=== PATIENT | male | born 1980 | race Caucasian/White ===

== ENCOUNTER 2020-02-27 11:42 | Inpatient (IN) | payer OTHER ==
[~2020-02-27] VITALS: Ht 182.9 cm; Wt 113.9 kg
[2020-02-27 11:48] VITALS: BP 131/86
[2020-02-27 12:47] LABS: HEMATOCRIT 25.6 % (42.0-52.0); HEMOGLOBIN 8.5 gm/dL (14.0-18.0); MCH 29.4 pg (26.0-34.0); MCHC 33.3 g/dL (28.0-37.0); MCV 88.3 fL (80.0-100.0); PLATELET COUNT 118 thou/uL (150-400); RDW 16.4 % (10.5-14.5); WBC 2.3 thou/uL (4.0-11.0)
[2020-02-27 12:55] LABS: ANION GAP 7 mmol/L (7-16); BUN 11 mg/dL (7-18); CALCIUM 8.2 mg/dL (8.5-10.1); CHLORIDE 101 mmol/L (98-107); CO2 26 mmol/L (21-32); CREATININE 0.7 mg/dL (0.7-1.3); GLUCOSE 97 mg/dL (74-106); POTASSIUM 4.1 mmol/L (3.5-5.1); SODIUM 134 mmol/L (136-145)
[2020-02-27 13:02] LABS: APTT 29.6 Seconds (24.5-32.8); INR 1.1; PROTIME 10.7 Seconds (9.3-11.4)
[2020-02-27 13:06] LABS: ALBUMIN 2.3 g/dL (3.4-5.0); MAGNESIUM 2.1 mg/dL (1.8-2.4); SGOT 51 U/L (15-37); SGPT 50 U/L (30-65); TOTAL BILIRUBIN 0.4 mg/dL (0.2-1.0); TOTAL PROTEIN 5.2 g/dL (6.4-8.2); TROPONIN-I <0.06 ng/mL (<0.06)
[2020-02-27 13:57] LABS: ABSOLUTE NEUTROPHILS 1.9 thou/uL (1.4-8.2); PLATELET ESTIMATE NORMAL
[2020-02-27 14:21] LABS: AMP/METHAMP Negative (Negative); BARBITURATES Negative (Negative); BENZODIAZEPINES Negative (Negative); COCAINE Negative (Negative); METHADONE Negative (Negative); OPIATES POSITIVE (Negative); PCP Negative (Negative)
--- NOTE | 2020-02-27 14:25 | EKG ---
[facility] [place] [address] ELECTROCARDIOGRAM REPORT Name: SILVANO WOOD Room #: PRE M.R.#: [id number] Admission: Attend Phys: Discharge: Date of : 76 Report #: [id number] THIS REPORT FOR: cc: Harry Rivera MD [facility] ~ THIS REPORT FOR: //name// [facility] ED Test Date: 2020-02-27 Test Time: 11:51:11 Pat Name: SILVANO WOOD Department: Room: Gender: M Trackwalker: kkrammirlande : 1980 Requested By: Zacarias Forrest Order Number: [id number] : Harry Rivera Measurements Intervals [place] Rate: 88 P: 20 TX: 165 QRS: 27 QRSD: 99 T: 26 QT: 362 QTc: 438 Interpretive Statements Sinus rhythm Baseline wander in lead(s) V3 No previous ECG available for comparison Electronically Signed On 02-27-2020 14:24:52 CAREER GUIDANCE TECHNICIAN by Harry Rivera [email or web address] <ELECTRONICALLY SIGNED> By: Harry Rivera MD, FACC 02/27/20 1424 1151 1151 Harry Rivera MD, FACC /EPI
[2020-02-27] MEDS ORDERED: LIPITOR40 MG PO (15:08)
[2020-02-27] MEDS ORDERED: ELIQUIS5 MG PO (15:08)
[2020-02-27] MEDS ORDERED: LISINOPRIL20 MG PO (15:08)
[2020-02-27] MEDS ORDERED: PLAVIX 75 MG TA75 MG PO (15:08)
[2020-02-27] MEDS ORDERED: LASIX 40 MG TAB40 M2 PO (15:08)
[2020-02-27] MEDS ORDERED: TOPROL XL50 MG PO (15:08)
[2020-02-27] MEDS ORDERED: ROXICODONE30 M1 PO (15:09)
[2020-02-27] MEDS ORDERED: REQUIP 1 MG TABL1 M1 PO (15:10)
[2020-02-27] MEDS ORDERED: FENTANYL PATCH TRANSDERM (15:10)
[2020-02-27] MEDS ORDERED: COLACE100 MG PO (15:10)
[2020-02-27] MEDS ORDERED: INTERMEZZO3.5 MG SUBLING (15:11)
[2020-02-27] MEDS ORDERED: MEROPENEM1 GM IV (15:12)
[2020-02-27] MEDS ORDERED: DIPHENHIST50 MG PO (15:12)
--- NOTE | 2020-02-27 18:05 | NUR ---
NOTIFIED OF NEED FOR BLOOD CULTURES. WHEN TELLING PATIENT, HE STATES HE REFUSES D/T NOT WANTING TO BE POKED AND STATES HE KNOWS HES ALREADY SEPTIC
[2020-02-27 18:49] VITALS: BP 121/80
[2020-02-27 19:38] VITALS: BP 128/71
[2020-02-27 20:21] VITALS: BP 112/75
[2020-02-28 06:28] LABS: HEMOGLOBIN 7.7 gm/dL (14.0-18.0)
[2020-02-28 06:30] LABS: HEMATOCRIT 22.9 % (42.0-52.0); MCH 29.7 pg (26.0-34.0); MCHC 33.6 g/dL (28.0-37.0); MCV 88.3 fL (80.0-100.0); PLATELET COUNT 97 thou/uL (150-400); RDW 16.1 % (10.5-14.5)
[2020-02-28 06:36] LABS: WBC 1.6 thou/uL (4.0-11.0)
[2020-02-28 06:45] LABS: CALCIUM 7.5 mg/dL (8.5-10.1); CREATININE 0.6 mg/dL (0.7-1.3); POTASSIUM 4.5 mmol/L (3.5-5.1)
--- NOTE | 2020-02-28 08:22 | NUR ---
ADMIT PT ADMITTED TO ROOM 356 FROM ER FOR GI BLEED HGB AT 7.7 AND WBC'S 2.8. TICC LINE TO RIGHT CHEST GOOD BLOOD RETURN AND FLUSHES WITHOUT DIFFICULTY. PT HAD A FENTANYL PATCH PLACED TO LEFT SHOULDER IN ER AND THE TEGADERM PLACED OVER IT CAUSED HIVES THAT BLED WHEN RUPTURED PATIENT PICKING AT HIVES AND NEW AND OLD SCABS. REUESTING BENEDRYL Q4HRS AND OXYIR Q4HRS FOR PAIN TO HIS LEFT HIP AND BACK GIVEN WITH EFFECT. PT DRINKING PLENTY OF WATER REFUSED LABS UNLESS PULLED FROM LINE. CONTINUE TO MONITOR.
[2020-02-28 08:49] VITALS: BP 124/73
[2020-02-28 09:08] LABS: ABSOLUTE RETIC COUNT 0.0188 10^6/uL; OBSERVED RETIC COUNT 0.72 % (0.6-2.6)
[2020-02-28 12:50] VITALS: BP 128/93
[2020-02-28 13:08] LABS: ABSOLUTE NEUTROPHILS 1.2 thou/uL (1.4-8.2); MYELOCYTES 2 %
[2020-02-28 13:09] LABS: ANISOCYTOSIS 1+; OVALOCYTES FEW; TEARDROPS OCCASIONAL
[2020-02-28 18:14] VITALS: BP 125/83
[2020-02-28 19:30] VITALS: BP 132/91
[2020-02-29 03:10] VITALS: BP 149/99
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
--- NOTE | 2020-02-29 08:37 | NUR ---
PT MAKING PROGRESS TOWARDS GOALS. PT DENIES ANY BM OVERNIGHT. DENIES ANY NAUSEA/VOMITING. NO REPORTS OF ANY BLEEDING. DENIES ANY SOA AT REST. STATES HE HAS BEEN VOIDING IN TO THE TOILET. IVF ORDERED BUT PT HAS STATED "I REFUSED THEM. I DON'T WANT TO BE PEEING ALL THE TIME."
[2020-02-29 08:45] LABS: MCV 88.2 fL (80.0-100.0)
[2020-02-29 08:47] LABS: HEMATOCRIT 23.6 % (42.0-52.0); MCH 29.6 pg (26.0-34.0); MCHC 33.6 g/dL (28.0-37.0); RBC 2.67 mil/uL (4.50-6.00); RDW 16.3 % (10.5-14.5)
[2020-02-29 09:07] VITALS: BP 147/94
[2020-02-29 09:09] LABS: HEMOGLOBIN 7.9 gm/dL (14.0-18.0); PLATELET COUNT 96 thou/uL (150-400)
--- NOTE | 2020-02-29 11:30 | NUR ---
PT WAS CHECK ON AND HE WAS IN SHOWER. HE HAD BEEN INSTRUCTED TO CALL TO HAVE RT SC IN COVERED BEFORE SHOWER BUT PATIENT GOT UP AND TOOK IV IN BATHROOM. I TOLD HIM TO CALL ME SOON DONE IN BATHROOM. MY SURGICAL RN CHECKED ON HIM @ 1145 AND HE HAD LEFT THE UNIT. WE CALLED SECURITY AND DR MOONEY AND [employer] TO NOTIFY THEM PATIENT HAD LEFT THE UNIT. I CALLED NUMBER PROVIDED FOR HIM AND HIS WHICH WAS SAME NUMBER AND IT WAS OUT OF SERVICE.
[2020-02-29 14:04] LABS: ANISOCYTOSIS 1+
[2020-02-29 14:21] LABS: ABSOLUTE NEUTROPHILS 1.2 thou/uL (1.4-8.2)
[2020-02-29 14:24] LABS: WBC 1.5 thou/uL (4.0-11.0)
[2020-02-29 23:06] LABS: HEMOGLOBIN 7.8 g/dL (13.0-17.7); IgA 179 mg/dL (90-386); IgG 544 mg/dL (603-1613); IgM 5 mg/dL (20-172)
[2020-03-01 14:07] LABS: ANA INTERPRETATION Negative (Negative)
[2020-03-01 15:08] LABS: KAPPA FREE LIGHT CHAINS 15.6 mg/L (3.3-19.4); KAPPA/LAMBDA RATIO 1.17 (0.26-1.65); LAMBDA FREE LIGHT CHAINS 13.3 mg/L (5.7-26.3)
[2020-03-02 19:07] LABS: URINE PROTEIN (MG/DL) 14.6 mg/dL (Not Estab.)
[2020-03-02 19:07] LABS: GLOBULIN TOTAL 2.1 g/dL (2.2-3.9); M-SPIKE Not Observed g/dL (Not Observed)
== END 2020-02-29 12:00 | disposition left against medical advice (07) | DRG 178 ==
LOC: ER 11:42 → EROBS 15:08 → 3W 19:34
PROVIDERS: Emergency Medicine; Internal Medicine; Nurse Practitioner; ADMIT Internal Medicine; ATTEND Internal Medicine
DX: U07.1 COVID-19 (principal); I48.20 Chronic atrial fibrillation, unspecified; D62 Acute posthemorrhagic anemia; D61.818 Other pancytopenia; I50.32 Chronic diastolic (congestive) heart failure; K92.1 Melena; E78.5 Hyperlipidemia, unspecified; I49.5 Sick sinus syndrome; I11.0 Hypertensive heart disease with heart failure; G89.4 Chronic pain syndrome; I25.10 Atherosclerotic heart disease of native coronary artery without angina pectoris; Z95.0 Presence of cardiac pacemaker; I25.2 Old myocardial infarction; Z90.49 Acquired absence of other specified parts of digestive tract; Z88.8 Allergy status to other drugs, medicaments and biological substances; Z98.84 Bariatric surgery status
CPT/HCPCS: 10879